=== PATIENT | female | born 1995 | race Caucasian/White ===

== ENCOUNTER 2021-02-25 10:15 | Day surgery (SDC) | payer OTHER ==
[2021-02-25 10:57] VITALS: BMI 37.5
[2021-02-25] MEDS ORDERED: hydrALAZINE 20 MG/ML VIAL SLOW IVP PRN (12:25)
[2021-02-25 12:40] LABS: Bilirubin Neg (Negative); Blood, Urine Negative (Negative); Clarity Clear (Clear); Glucose, Urine (Dipstick) Normal (Negative); Ketone, Urine Negative (Negative); Leukocyte Negative (Negative); Nitrite Negative (Negative); Protein, Urine (Dipstick) Negative (Neg-Trace); Urobilinogen Normal mg/dL (Less than 2)
[2021-02-25 12:57] LABS: Bacteria/HPF None Seen HPF (None Seen); RBC/HPF None Seen HPF (0-3); Squamous Epithelial 0-3 HPF (0-3); WBC/HPF 0-3 HPF (0-3)
== END 2021-02-25 14:10 | disposition home health service (06) ==
LOC: CSHSDC/OP 10:15 → CSHLD 10:30 → CSHSDC/OP 14:10
PROVIDERS: ATTEND Obstetrics & Gynecology
DX: O99.891 Other specified diseases and conditions complicating pregnancy (principal); R10.30 Lower abdominal pain, unspecified; N89.8 Other specified noninflammatory disorders of vagina; O36.8130 Decreased fetal movements, third trimester, not applicable or unspecified; O47.03 False labor before 37 completed weeks of gestation, third trimester; O99.513 Diseases of the respiratory system complicating pregnancy, third trimester; J45.909 Unspecified asthma, uncomplicated; Z3A.29 29 weeks gestation of pregnancy; Z88.0 Allergy status to penicillin; Z88.2 Allergy status to sulfonamides
CPT/HCPCS: 59025; 81001; 87480; 87510; 87660; 99284

== ENCOUNTER 2022-06-28 21:00 | Emergency (ER) | payer OTHER | END 2022-06-28 21:56 | disposition home or self-care (01) | LOC: CSHERS 21:00 | DX: J06.9 Acute upper respiratory infection, unspecified (principal); Z20.822 Contact with and (suspected) exposure to COVID-19 | CPT/HCPCS: 93005; U0003; U0005 ==

== ENCOUNTER 2022-08-21 21:12 | Emergency (ER) | payer OTHER ==
[2022-08-21] MEDS ORDERED: Lidocaine 1% PF 5 ML VIAL ONE (21:48)
[2022-08-21] MEDS ORDERED: Bacitracin 1 PK ONE (23:06)
== END 2022-08-21 23:10 | disposition home or self-care (01) ==
LOC: CSHERS 21:12
DX: O9A.212 Injury, poisoning and certain other consequences of external causes complicating pregnancy, second trimester (principal); S81.811A Laceration without foreign body, right lower leg, initial encounter; Z3A.15 15 weeks gestation of pregnancy; Y29.XXXA Contact with blunt object, undetermined intent, initial encounter; Y99.0 Civilian activity done for income or pay
CPT/HCPCS: 12002

== ENCOUNTER 2022-12-29 14:43 | Day surgery (SDC) | payer OTHER | END 2022-12-29 18:00 | disposition home or self-care (01) | LOC: CSHLD/OP 14:43 | PROVIDERS: ATTEND Obstetrics & Gynecology | DX: O36.8130 Decreased fetal movements, third trimester, not applicable or unspecified (principal); O26.853 Spotting complicating pregnancy, third trimester; O99.513 Diseases of the respiratory system complicating pregnancy, third trimester; J45.909 Unspecified asthma, uncomplicated; Z88.0 Allergy status to penicillin; Z88.2 Allergy status to sulfonamides; Z3A.33 33 weeks gestation of pregnancy | CPT/HCPCS: 76819; 99283 ==

== ENCOUNTER 2023-01-24 17:49 | Day surgery (SDC) | payer OTHER ==
[2023-01-24 19:28] VITALS: BMI 40.2
== END 2023-01-24 21:49 | disposition home or self-care (01) ==
LOC: CSHLD/OP 17:49
PROVIDERS: ATTEND Obstetrics & Gynecology
DX: O47.1 False labor at or after 37 completed weeks of gestation (principal); Z79.899 Other long term (current) drug therapy; Z88.0 Allergy status to penicillin; Z88.2 Allergy status to sulfonamides; Z87.59 Personal history of other complications of pregnancy, childbirth and the puerperium; Z3A.37 37 weeks gestation of pregnancy
CPT/HCPCS: 99283

== ENCOUNTER 2023-02-07 06:00 | Inpatient (IN) | payer OTHER ==
[2023-02-07] MEDS ORDERED: hydrALAZINE 20 MG/ML VIAL SLOW IVP PRN (06:03)
[2023-02-07] MEDS ORDERED: HYDROcodone/Acetaminophen 5/325 mg Tablet PO PRN ×2 (06:03)
[2023-02-07] MEDS ORDERED: Misoprostol 200 MCG TAB PR PRN (06:03)
[2023-02-07] MEDS ORDERED: Ibuprofen 800 MG TAB PO PRN (06:03)
[2023-02-07] MEDS ORDERED: Butorphanol Tartrate 1 MG/ML VIAL SLOW IVP PRN (06:03)
[2023-02-07] MEDS ORDERED: Lidocaine 1% (PF) 30 ML VIAL SC PRN (06:03)
[2023-02-07] MEDS ORDERED: Ondansetron PF 4 MG/2 ML Vial IVP PRN (06:03)
[2023-02-07] MEDS ORDERED: Promethazine HCl 25 MG/ML VIAL IM PRN (06:03)
[2023-02-07] MEDS ORDERED: Methylergonovine 0.2 MG/ML VIAL IM PRN (06:03)
[2023-02-07] MEDS ORDERED: NS w/ Oxytocin 30 units 500 ML IV SCH ×3 (06:15)
[2023-02-07] MEDS ORDERED: Lactated Ringer's 1,000 ML IV SCH (06:15)
[2023-02-08 06:02] VITALS: BMI 40.2
[2023-02-08 06:31] LABS: Hemoglobin 11.6 g/dL (12.0-15.5); Mean Corpuscular HGB CONC 32.2 g/dL (32.0-36.0); Mean Corpuscular Hemoglobin 24.9 pg (27.0-33.0); Mean Corpuscular Volume 77.4 fl (81.6-98.3); Mean Platelet Volume 11.5 fl (7.4-10.4); Platelet Count 186 10x3/uL (150-450); RBC Distribution Width 13.8 % (11.5-14.5); Red Blood Cell (RBC) Count 4.65 10x6/uL (3.90-5.03); White Blood Cell (WBC) Count 8.2 10x3/uL (3.5-10.5)
[2023-02-08 07:03] LABS: HBSAg Index 0.14 S/CO (0-0.99); Hep B Surf Ag - L&D Non-Reactive S/CO (NonReactive)
[2023-02-08 07:04] LABS: Syphilis Antibody Nonreactive (Nonreactive); Syphilis Antibody Index 0.05 S/CO (<1.00 Non-Reactive)
[2023-02-08] MEDS ORDERED: Fentanyl 2 mcg/Bup 0.1% Cadd 100 ML ONE (07:19)
[2023-02-08] MEDS ORDERED: ePHEDrine 50 MG/ML VIAL ONE (08:00)
[2023-02-08] MEDS ORDERED: Bupivacaine 0.25% HCL 30 ML VIAL ONE (08:00)
[2023-02-08] MEDS ORDERED: NS w/ Oxytocin 30 units 500 ML ONE (17:07)
[2023-02-08] MEDS ORDERED: hydrALAZINE 20 MG/ML VIAL SLOW IVP PRN (19:41)
[2023-02-08] MEDS ORDERED: Milk Of Magnesia 30 ML UDCUP PO PRN (19:41)
[2023-02-08] MEDS ORDERED: Methylergonovine 0.2 MG/ML VIAL IM PRN (19:41)
[2023-02-08] MEDS ORDERED: Bisacodyl 10 MG SUPP PR PRN (19:41)
[2023-02-08] MEDS ORDERED: HYDROcodone/Acetaminophen 5/325 mg Tablet PO PRN ×2 (19:41)
[2023-02-08] MEDS ORDERED: Lanolin Ointment 7 GM TUBE TOP PRN (19:41)
[2023-02-08] MEDS ORDERED: Boostrix 0.5 ML (Tdap) VIAL (>/=7 yrs of age) IM ONE (19:41)
[2023-02-08] MEDS ORDERED: Benzocaine-Menthol 82.5 ML CAN TOP PRN (19:41)
[2023-02-08] MEDS ORDERED: Ondansetron PF 4 MG/2 ML Vial IVP PRN (19:41)
[2023-02-08] MEDS ORDERED: Misoprostol 200 MCG TAB VAG PRN (19:41)
[2023-02-08] MEDS ORDERED: NS w/ Oxytocin 30 units 500 ML IV SCH (20:00)
[2023-02-08] MEDS ORDERED: Ferrous Sulfate 325 MG TAB PO SCH (20:15)
[2023-02-08] MEDS ORDERED: Prenatal Vitamin 1 TAB PO SCH (20:15)
[2023-02-08] MEDS: Docusate 100 MG CAP PO SCH (21:52)
[2023-02-08] MEDS: Ibuprofen 800 MG TAB PO SCH (21:52)
[2023-02-09] MEDS: Ibuprofen 800 MG TAB PO SCH ×2 (05:07→13:33)
[2023-02-09] MEDS: Ferrous Sulfate 325 MG TAB PO SCH ×2 (08:02→16:56)
[2023-02-09] MEDS: Docusate 100 MG CAP PO SCH (08:39)
[2023-02-09] MEDS ORDERED: Prenatal Vitamin 1 TAB PO SCH (09:00)
[2023-02-09 16:05] VITALS: BP 114/60; TEMP 98.4
== END 2023-02-09 18:30 | disposition home or self-care (01) | DRG 807 ==
LOC: CSHLD 02-08 05:34 → CSHPP 02-08 18:50
PROVIDERS: ADMIT Obstetrics & Gynecology; ATTEND Obstetrics & Gynecology
PROC: 10E0XZZ Delivery of Products of Conception, External Approach (ICD-10-PCS; principal; 2023-02-08)
PROC: 10907ZC Drainage of Amniotic Fluid, Therapeutic from Products of Conception, Via Natural or Artificial Opening (ICD-10-PCS; 2023-02-08)
PROC: 10H07YZ Insertion of Other Device into Products of Conception, Via Natural or Artificial Opening (ICD-10-PCS; 2023-02-08)
DX: O80 Encounter for full-term uncomplicated delivery (principal); Z37.0 Single live birth; Z3A.39 39 weeks gestation of pregnancy; Z88.0 Allergy status to penicillin; Z88.2 Allergy status to sulfonamides
CPT/HCPCS: 51702; 85027; 86780; 86850; 86900; 86901; 87340; J2405; J2590; J3490; J7120; S0020

== ENCOUNTER 2023-02-15 16:37 | Emergency (ER) | payer OTHER ==
[~2023-02-15 16:37] MED LIST: Iopamidol 370 76% 100 ML VIAL ONE
[2023-02-15 17:28] LABS: #Basophils 0.1 10x3/uL (0.0-0.2); #Eosinphils 0.1 10x3/uL (0.0-0.5); #Monocytes 0.7 10x3/uL (0.0-1.1); #Neutrophils 6.3 10x3/uL (1.5-8.4); %Basophils 0.6 % (0.0-2.0); %Eosinophils 1.1 % (0.0-6.0); %Lymphocytes 20.8 % (18.0-47.0); %Monocytes 7.2 % (0.0-10.0); %Neutrophils 69.7 % (40.0-75.0); Hemoglobin 12.8 g/dL (12.0-15.5); Mean Corpuscular HGB CONC 31.3 g/dL (32.0-36.0); Mean Corpuscular Hemoglobin 24.4 pg (27.0-33.0); Mean Corpuscular Volume 77.9 fl (81.6-98.3); Mean Platelet Volume 10.1 fl (7.4-10.4); Platelet Count 235 10x3/uL (150-450); RBC Distribution Width 14.1 % (11.5-14.5); Red Blood Cell (RBC) Count 5.25 10x6/uL (3.90-5.03)
[2023-02-15] MEDS ORDERED: Acetaminophen 500 MG TAB ONE (17:42)
[2023-02-15 17:47] LABS: ALT (SGPT) 25 U/L (8-55); AST (SGOT) 28 U/L (5-34); Albumin 3.7 g/dL (3.5-5.0); Alkaline Phosphatase 150 U/L (40-110); Anion Gap 17 mmol/L (10-20); BUN (Urea Nitrogen) 18 mg/dL (7.0-18.7); Bilirubin, Total 1.2 mg/dL (0.2-1.2); Calc. Creatinine Clearance 0 mL/min (70-130); Calcium 8.5 mg/dL (7.8-10.44); Carbon Dioxide 22 mmol/L (22-29); Chloride 107 mmol/L (98-107); Estimated GFR 102; Globulin 2.9 g/dL (2.4-3.5); Glucose 83 mg/dL (70-105); Potassium 3.8 mmol/L (3.5-5.1); Protein, Total 6.6 g/dL (6.0-8.3); Sodium 142 mmol/L (136-145)
[2023-02-15 21:14] LABS: Bilirubin Neg (Negative); Blood, Urine 50 (Negative); Clarity Clear (Clear); Glucose, Urine (Dipstick) Normal (Negative); Ketone, Urine Negative (Negative); Leukocyte Negative (Negative); Nitrite Negative (Negative); Protein, Urine (Dipstick) Negative (Neg-Trace); Specific Gravity, Urine 1.005 (1.005-1.030); Urobilinogen Normal mg/dL (Less than 2); pH, Urine 6.5 (5.0-9.0)
[2023-02-15 21:26] LABS: Bacteria/HPF Rare-Few HPF (None Seen); RBC/HPF 0-3 HPF (0-3); Squamous Epithelial 0-3 HPF (0-3); WBC/HPF 0-3 HPF (0-3)
== END 2023-02-15 21:44 | disposition home or self-care (01) ==
LOC: CSHERS 16:37
DX: O99.893 Other specified diseases and conditions complicating puerperium (principal); R00.2 Palpitations; R06.02 Shortness of breath
CPT/HCPCS: 71045; 71275; 80053; 81003; 81015; 83880; 84484; 85025; 85379; 93005; Q9967